=== PATIENT | female | born 1955 | race Hispanic/Latino ===

== ENCOUNTER 2024-07-16 06:38 | Day surgery (SDC) | payer OTHER ==
[2024-07-14 09:08] LABS: BASOPHILS % 0.5 % (0.0-1.0); EOSINOPHILS # (AUTO) 0.2 (0.0-0.4); EOSINOPHILS % 3.7 % (0.0-6.0); HEMATOCRIT 40.3 % (34.2-44.1); LYMPHOCYTES # (AUTO) 2.3 (1.0-3.2); LYMPHOCYTES % 37.7 % (18.0-39.1); MEAN CORPUSCULAR HEMOGLOBIN 31.4 pg (28-32); MEAN CORPUSCULAR HGB CONC 32.3 g/dL (31-35); MEAN CORPUSCULAR VOLUME 97.3 fL (81-99); MONOCYTES # (AUTO) 0.5 (0.2-0.8); NEUTROPHILS # (AUTO) 2.9 (2.1-6.9); NEUTROPHILS % 48.9 % (38.7-80.0); PLATELET COUNT 184 x10e3/uL (140-360); RED BLOOD COUNT 4.14 x10e6/uL (3.6-5.1); RED CELL DISTRIBUTION WIDTH 13.9 % (11.7-14.4); WHITE BLOOD COUNT 5.99 x10e3/uL (4.8-10.8)
[2024-07-14 09:28] LABS: ALBUMIN/GLOBULIN RATIO 1.1 (0.8-2.0); ANION GAP 13.8 mmol/L (8-16); BILIRUBIN,TOTAL 0.5 mg/dL (0.2-1.2); CALCIUM 9.4 mg/dL (8.4-10.2); CHOL/HDL RATIO 3.3 (3.0-3.6); CREATININE, SERUM 0.73 mg/dL (0.57-1.11); POTASSIUM 3.8 mmol/L (3.5-5.1); TOTAL PROTEIN 7.8 g/dL (6.5-8.1)
[~2024-07-16] VITALS: Ht 157.5 cm; Wt 75.3 kg
[2024-07-16] VITALS (16 sets, daily range): BP systolic 99–148; BP diastolic 54–70; PULSE 62–70; RESP 10–19; TEMP 96–96.6; O2SAT 97–100
[~2024-07-16 06:38] MED LIST: ASPIRIN EC81 MG PO; LISINOPRIL-HCT1 EAC2; ROSUVASTATIN CA20 MG
[2024-07-16] MEDS ORDERED: ALENDRONATE SOD70 MG (07:05)
[2024-07-16] MEDS ORDERED: LIDOCAINE HCL 2% LOCAL 20 ML VIAL ONE (07:32)
[2024-07-16] MEDS ORDERED: IOPAMIDOL 370 MG/ML 100 ML INFUS..BTL INJ ONE (07:32)
[2024-07-16] MEDS ORDERED: HEPARIN SOD/SOD CHLORIDE 2,000 ML ONE (07:32)
[2024-07-16] MEDS ORDERED: SODIUM CHLORIDE 0.9% 1000ML 1,000 ML ONE (07:32)
[2024-07-16] MEDS ORDERED: VERAPAMIL HCL 2.5 MG/ML 2 ML VIAL ONE (07:32)
[2024-07-16] MEDS ORDERED: HEPARIN SOD (PORCINE) 1000 UNIT/ML 30ML ONE (07:32)
[2024-07-16] MEDS ORDERED: NITROGLYCERIN/D5W 200 MCG/ML 250 ML ONE (07:32)
[2024-07-16] MEDS ORDERED: MIDAZOLAM HCL 2 MG/2 ML VIAL ONE ×2 (07:55→08:35)
[2024-07-16] MEDS ORDERED: FENTANYL CITRATE/PF 100MCG/2 ML INJ ONE (07:56)
== END 2024-07-16 12:15 | disposition home or self-care (01) ==
LOC: CATH LAB 06:38
PROVIDERS: ATTEND Internal Medicine
DX: I25.118 Atherosclerotic heart disease of native coronary artery with other forms of angina pectoris (principal); R94.39 Abnormal result of other cardiovascular function study; I10 Essential (primary) hypertension; E78.00 Pure hypercholesterolemia, unspecified; Z01.812 Encounter for preprocedural laboratory examination; Z79.82 Long term (current) use of aspirin; Z79.899 Other long term (current) drug therapy; Z68.30 Body mass index [BMI] 30.0-30.9, adult
CPT/HCPCS: 36415; 80053; 80061; 85025; 93458; C1887; J1644; J2003; J2250; J3010; J7030; Q9967